=== PATIENT | male | born 1980 | race African-American/Black ===

== ENCOUNTER 2018-07-24 09:19 | Emergency (ER) | payer OTHER ==
[~2018-07-24] VITALS: Ht 177.8 cm; Wt 86.2 kg
[2018-07-24 09:38] VITALS: BP 150/94
[2018-07-24] MEDS ORDERED: KETOROLAC TROMETHAMINE INJ 60 MG/2 ML VIAL IM ONE (10:00)
[2018-07-24] MEDS ORDERED: KETOROLAC TROMETHAMINE INJ 30 MG/ML VIAL ONE (10:21)
--- NOTE | 2018-07-24 10:43 | NUR ---
Patient discharged to home in stable condition. Written and verbal after care instructions given. Patient verbalizes understanding of instruction.
== END 2018-07-24 10:42 | disposition home or self-care (01) ==
LOC: ER 09:27
DX: S56.811A Strain of other muscles, fascia and tendons at forearm level, right arm, initial encounter (principal); Z60.2 Problems related to living alone; X50.0XXA Overexertion from strenuous movement or load, initial encounter; Y93.89 Activity, other specified; Y92.89 Other specified places as the place of occurrence of the external cause; Y99.8 Other external cause status
CPT/HCPCS: 73080; 96372; 99283; J1885